=== PATIENT | male | born 1970 | race Caucasian/White ===

== ENCOUNTER 2024-11-16 00:41 | Emergency (ER) | payer OTHER, SELFPAY ==
--- NOTE | 2024-11-16 | ECG_ITS ---
Test Reason : ETOH Blood Pressure : / mmHG Vent. Rate : 110 BPM Atrial Rate : 271 BPM P-R Int : 000 ms QRS Dur : 086 ms QT Int : 408 ms P-R-T Axes : 084 -29 074 degrees QTc Int : 552 ms Atrial flutter with variable A-V block ST & T wave abnormality, consider lateral ischemia Prolonged QT Abnormal ECG No previous ECGs available Referred By: Generic ED Physician Electronically Signed By:CONCETTA GREGG MD
[2024-11-16 00:47] VITALS: BP 113/70; BP 154/106; PULSE 78; PULSE 97; RESP 16; TEMP 36.9; O2SAT 95; O2SAT 97; BMI 38.7
[2024-11-16 01:25] LABS: MANUAL DIFF FLAG NO
[2024-11-16 01:27] LABS: Basophils Absolute Auto 0.1 X10*3/uL (0.0-0.2); Basophils Percent Auto 1.2 % (0-2); Eosinophils Absolute Auto 0.2 X10*3/uL (0.0-0.4); Eosinophils Percent Auto 2.7 % (0-4); Hemoglobin 15.4 g/dl (14.0-18.0); Imm Gran Abs Auto 0.02 X10*3/uL (0.00-0.03); Imm Gran Pct Auto 0.3 % (0.0-0.4); Lymphocytes Absolute Auto 2.2 X10*3/uL (1.2-4.9); Lymphocytes Percent Auto 37.5 % (20-40); Mean Corpuscular Hemoglobin 34.6 pg (27.0-33.0); Mean Corpuscular Volume 98.9 fL (80.0-98.0); Monocytes Absolute Auto 0.6 X10*3/uL (0.1-1.2); Monocytes Percent Auto 9.6 % (2-11); Neutrophils Absolute Auto 2.9 x10*3/uL (2.0-8.3); Neutrophils Percent Auto 48.7 % (45-73); Platelet Count 138 X10*3/uL (160-400); Red Blood Count 4.45 X10*6/uL (4.60-5.80); White Blood Count 5.9 X10*3/uL (4.8-10.8)
[2024-11-16 01:52] LABS: Acetaminophen LAB < 3 mcg/mL (<30); Alanine Aminotransferase 168 U/L (0-40); Albumin Level 4.2 g/dL (3.5-5.0); Alkaline Phosphatase 89 U/L (39-117); Aspartate Amino Transferase 198 U/L (5-37); Bilirubin Total 0.6 mg/dL (0.0-1.0); Blood Urea Nitrogen 3 mg/dL (9-16); Calcium 8.2 mg/dL (8.4-10.2); Carbon Dioxide 19 mmol/L (22-29); Creatinine Clr Calc Pharmacy 167.7; Estimated Glomerular Filt Rate > 60; Ethanol 252 mg/dL; Glucose Random 118 mg/dL (60-115); Salicylate < 5.0 mg/dL (15-30); Total Protein 7.8 g/dL (6.5-8.0)
--- NOTE | 2024-11-16 01:55 | ED_ITS ---
HPI - Alcohol General Chief Complaint: ETOH/Substance Use Stated Complaint: ETOH Time Seen by Provider: 11/16/24 01:49 Source: EMS Mode of arrival: EMS Limitations: other History of Present Illness ED Provider: Dr. Martha Valdez HPI narrative: Patient comes to the emergency room complaining of alcohol abuse. According to EMS, patient's girlfriend is in [place] who has been trying to in touch with the patient. Seems the patient has not been answering the phone for days. The patient's girlfriend called 911 asking for a well check. When they checked on the patient, patient was awake, alert answering questions, seemed intoxicated and brought to emergency room. On arrival, patient admits that he has been drinking a lot of alcohol, states that he wants detox. Denies suicidal ideation or homicidal ideation. Patient states that he was discharged from [facility] today. Patient requesting detox. Related Data Allergies Allergy/AdvReac Type Severity Reaction Status Date / Time Unable to Assess Allergy Verified 11/16/24 01:00 Review of Systems 2 Review of Systems: Constitutional : No Weight loss, No Fever, No Chills, No Night Sweats, No Fatigue, No Malaise ENT/Mouth : No Hearing loss, No Ear Pain, No Nasal Congestion, No Sinus Pain, No Hoarseness, No sore throat, No Rhinorrhea, No Swallowing Difficulty Eyes: No Eye Pain, No Swelling, No Redness, No Foreign Body, No Discharge, No Vision Changes Cardiovascular : No Chest Pain, No SOB, No Dyspnea on Exertion, No Orthopnea, No Edema, No Palpitations Respiratory : No Cough, No Sputum, No Wheezing, No Smoke Exposure, No Dyspnea Gastrointestinal : No Nausea, No Vomiting, No Diarrhea, No Constipation, No abdominal Pain, No Hematochezia, No Melena Genitourinary : no irregular bleeding, No Dysuria, No Urinary Frequency, No Hematuria, No Urinary Incontinence, No Urgency, No Flank Pain, No Urinary Flow Changes, No Hesitancy Musculoskeletal : No joint pain, No Myalgias, No Joint Swelling Skin : No Skin Lesions, No rash Neuro : No Weakness, No Numbness, No Paresthesias, No Loss of Consciousness, No Dizziness, No Headache Psych : Admits to heavy alcohol abuse, denies SI or HI Heme/Lymph: No Bruising, No Bleeding,No Lymphadenopathy Endocrine : No Polyuria, No Polydipsia, No Temperature Intolerance [facility] Past Medical History Medical History Alcohol abuse Social History Social History Do you have a plan to hurt others: No Plan Physical Exam ED Vital Signs: Vital Signs - 24 hr 11/16/24 00:47 Temperature 98.4 F Pulse Rate 97 Respiratory Rate 16 Blood Pressure 113/70 Pulse Oximetry 95 Oxygen Delivery Method Room Air BMI result Body Mass Index 38.7 Const Other: Appearance: Alert. Somnolent, easily arousable, slurred speech, under the influence of drugs versus alcohol, disheveled Eyes: Pupils equal, round and reactive to light. ENT: Pharynx normal. Neck: Normal inspection. Neck supple. No lymph nodes noted. No crepitus CVS: Normal heart rate and rhythm. Pulses normal. Normal S1 and S2 Respiratory: No respiratory distress. Breath sounds normal. No Wheezing. No rales Abdomen: Soft and nontender. No rigidity. No distention. Skin: Skin warm and dry. Normal skin color. Normal skin turgor. Extremities: No lower extremity edema. No Lacerations. No Rash Neuro: Moving all extremities. Patient is intoxicated, has slurred speech. CN 2 through 12 grossly intact Psych: calm, cooperative, normal affect Medical Decision Making Medical Decision Making MDM Narrative: My interpretation of labs: Patient's hematology does not show any significant acute abnormality, patient's chemistry is still pending. ETOH level 252. Care team consult pending Differential Diagnosis Differential Diagnoses: The differential diagnosis associated with the presentation includes (Alcohol abuse, polysubstance abuse) Lab Data 11/16/24 01:19 11/16/24 01:19 Labs: Lab Results 11/16/24 Range/Units 01:19 WBC 5.9 (4.8-10.8) X10*3/uL RBC 4.45 L (4.60-5.80) X10*6/uL Hgb 15.4 (14.0-18.0) g/dl Hct 44.0 (42.0-52.0) % MCV 98.9 H (80.0-98.0) fL MCH 34.6 H (27.0-33.0) pg MCHC 35.0 (31.0-36.0) g/dl RDW 13.0 (11.0-16.0) % Plt Count 138 L (160-400) X10*3/uL MPV 11.0 (9.4-12.4) fL Immature Gran % (Auto) 0.3 (0.0-0.4) % Neut % (Auto) 48.7 (45-73) % Lymph % (Auto) 37.5 (20-40) % [place] % (Auto) 9.6 (2-11) % Eos % (Auto) 2.7 (0-4) % Baso % (Auto) 1.2 (0-2) % Lymph # (Auto) 2.2 (1.2-4.9) X10*3/uL [place] # (Auto) 0.6 (0.1-1.2) X10*3/uL Eos # (Auto) 0.2 (0.0-0.4) X10*3/uL Baso # (Auto) 0.1 (0.0-0.2) X10*3/uL Abs Immat Gran (auto) 0.02 (0.00-0.03) X10*3/uL Absolute Neuts (auto) 2.9 (2.0-8.3) x10*3/uL Absolute Nucleated RBC 0.000 (0.0-0.012) X10*3/uL Nucleated RBC % (auto) 0.0 (0.0-0.2) /100WBC Carbon Dioxide 19 L (22-29) mmol/L BUN 3 L (9-16) mg/dL Creatinine 0.72 (0.5-1.4) mg/dL Estim Creat Clear Calc 167.7 Estimated GFR > 60 Random Glucose 118 H (60-115) mg/dL Calcium 8.2 L (8.4-10.2) mg/dL Total Bilirubin 0.6 (0.0-1.0) mg/dL AST 198 H (5-37) U/L ALT 168 H (0-40) U/L Alkaline Phosphatase 89 (39-117) U/L Total Protein 7.8 (6.5-8.0) g/dL Albumin 4.2 (3.5-5.0) g/dL Salicylates < 5.0 L (15-30) mg/dL Acetaminophen < 3 (<30) mcg/mL Ethyl Alcohol 252 mg/dL Critical Care Time Critical Care Time Critical Care Time: Yes Total Critical Care Time: 35 Attestation: I have personally provided critical care time. Time includes review of lab data, radiology results, discussion with consultants, and monitoring for potential decompensation. Intervention performed as documented. Discharge Plan Discharge Clinical Impression: Alcoholic intoxication Patient Disposition: Still a Patient
[2024-11-16 01:57] LABS: Chloride 109 mmol/L (96-108); Potassium 4.6 mmol/L (3.3-5.1); Sodium 142 mmol/L (135-145)
[2024-11-16 01:58] LABS: Anion Gap 19 (12-20)
--- NOTE | 2024-11-16 05:27 | PC.NURSE ---
on arrival pt denied si/hi. spoke with girlfriend Susan per pt approval who stated pt desires detox. pt confirmed he'd like detox, unable to state how much he drinks/last drink. pt soiled in urine, changed to hospital attire. pt is axox3 steady gait, calm/cooperative and redirectable.
[2024-11-16 06:41] VITALS: BP 115/67; PULSE 89; RESP 16; TEMP 36.9; O2SAT 93
[2024-11-16 08:34] VITALS: BP 115/67; PULSE 89; RESP 16; TEMP 36.9; O2SAT 93
== END 2024-11-16 08:20 | disposition home or self-care (01) ==
PROVIDERS: Emergency Provider Emergency Medicine
DX: F10.120 Alcohol abuse with intoxication, uncomplicated (principal); Y90.8 Blood alcohol level of 240 mg/100 ml or more
CPT/HCPCS: 36415; 80053; 80143; 80179; 80307; 85025; 93005; 99285

== ENCOUNTER → 2024-11-16 01:09 | Outpatient (BNV) | payer OTHER, SELFPAY | PROVIDERS: Emergency Provider Emergency Medicine; Visit Provider Internal Medicine Cardiovascular Disease | DX: I48.92 Unspecified atrial flutter (principal); R94.31 Abnormal electrocardiogram [ECG] [EKG] | CPT/HCPCS: 93010 ==